=== PATIENT | female | born 1975 | race Caucasian/White ===

== ENCOUNTER 2024-01-09 14:28 | Outpatient (REF) | payer BC, SELFPAY ==
[2024-01-09 15:07] LABS: HCT 42.4 % (36.0-46.0); HGB 14.5 g/dL (11.2-15.7); MCH 30.3 pg (27.0-33.0); MCHC 34.2 % (32.0-36.0); MCV 89 fL (80-95); MPV 13.2 fL (8.0-11.0); Platelet Count 190 10^3/uL (130-400); RBC 4.79 10^6/uL (3.93-5.22); RDW 12.5 % (11.7-14.6); WBC 5.62 10^3/uL (4.4-10.8)
[2024-01-09 15:45] LABS: ALT 32 U/L (14-59); AST 21 U/L (15-37); Albumin 4.7 g/dL (3.4-5.0); Alkaline Phosphatase 48 U/L (46-116); Anion Gap 11.1 mmol/L (3-11); BUN 12 mg/dL (7-18); Bilirubin, Total 1.4 mg/dL (0.2-1.0); CO2 25.9 mmol/L (21.0-32.0); CREATININE 0.8 mg/dL (0.55-1.02); Calcium 9.4 mg/dL (8.5-10.1); Chloride 103 mmol/L (98-107); Estimated GFR 91.97 (mL/min/1.73m2); Glucose 108 mg/dL (74-106); Potassium 3.8 mmol/L (3.5-5.1); Sodium 140 mmol/L (136-145); TSH (W/Ref FT4) 2.72 uIU/mL (0.36-3.74); Total Protein 7.9 g/dL (6.4-8.2)
[2024-01-20 16:44] LABS: Unconjugated(Indirect) Bili 1.2 mg/dL (< or =1.1)
== END 2024-01-09 14:29 | disposition home or self-care (01) ==
LOC: NCHCN 14:28
PROVIDERS: Visit Provider Family Medicine
DX: R63.4 Abnormal weight loss (principal); R17 Unspecified jaundice; R79.89 Other specified abnormal findings of blood chemistry
CPT/HCPCS: 80053; 82248; 85027; 84443

== ENCOUNTER 2024-05-25 15:25 | Outpatient (REF) | payer BC, SELFPAY ==
--- NOTE | 2024-05-25 11:40 | PAPFT_PTH ---
PATIENT: Jacob Bravo LOC: [facility]#:[id number] AGE/SX: 48/F ROOM: RE05/25/[address]: Jocelynn Pickard : 1975 BED: DIS: 05/25/2024 SPEC #: [id number] RECD: 05/25/24 18:36 STATUS: JUANA REQ #: [id number] MARILEE: 05/25/24 11:[address]: Jocelynn Pickard DEPT: [facility] Cytology RECD BY: Kayleigh Mcginnis Tissues: 1 - CX/ENDOCX FOR PAP SMEARS Procedures: PAP THIN PREP/[facility] Screening HPV DNA PROBE Comments: [id number] (HPV 16 & 18/45)
== END 2024-05-25 15:26 | disposition home or self-care (01) ==
LOC: NCHCN 15:25
PROVIDERS: PCP Family Medicine; Visit Provider Family Medicine
DX: Z11.51 Encounter for screening for human papillomavirus (HPV) (principal); Z01.419 Encounter for gynecological examination (general) (routine) without abnormal findings
CPT/HCPCS: 88142; 87624